=== PATIENT | female | born 1965 | race Caucasian/White ===

== ENCOUNTER 2020-08-04 15:19 | Emergency (ER) | payer OTHER ==
[~2020-08-04] VITALS: Ht 149.9 cm; Wt 50.8 kg
--- NOTE | 2020-08-04 15:25 | NUR ---
PT. PLACED IN ED BED 7
[2020-08-04 15:29] VITALS: BP_SYST 103
--- NOTE | 2020-08-04 15:30 | NUR ---
PT BIBA A&Ox3 CC WITNESSED SYNCOPAL EPISODE TODAY PT IS S/P ELECTIVE ABDOMINAL SURGERY PT WENT TO STAND FROM LYING DOWN AT HOME AND SISTER WITNESED HER HAVE A SYNCOPAL EPISODE ACCORDING TO HER SISTER WAS UNCONSCIOUS FOR ATLEAST 1 MINUTE. PT DENIES HEAD/NECK/BACK PAIN PT HAS NO MEDICAL HISTORY AND NO KNOWN ALLERGIES. PT. TOOK KEFLEX AND IBUPROFEN TODAY AFTER HER ELECTIVE SURGERY. PT WENT HAS ABDOMINAL BINDER ON CURRENTLY. PT VITALS STABLE WILL CONTINUE TO MONITOR
--- NOTE | 2020-08-04 15:52 | NUR ---
ER Dr. ODEN at bedside examining patient.
[2020-08-04 16:43] LABS: BASOPHILS # (AUTO) 0.1 K/uL (0.0-0.2); BASOPHILS % (AUTO) 0.5 % (0.0-2.0); HEMATOCRIT 34.3 % (36-48); HEMOGLOBIN 11.8 g/dL (12.0-16.0); LYMPHOCYTES # (AUTO) 0.9 K/uL (1.0-5.5); LYMPHOCYTES % (AUTO) 6.1 % (20.5-51.5); MEAN CORPUSCULAR HEMOGLOBIN 31 pg (27-31); MEAN CORPUSCULAR HGB CONC 35 % (32-36); MEAN CORPUSCULAR VOLUME 91 fL (79.0-98.0); MONOCYTES # (AUTO) 0.7 K/uL (0.0-1.0); MONOCYTES % (AUTO) 4.9 % (1.7-9.3); NEUTROPHILS # (AUTO) 12.5 K/uL (1.8-7.7); NEUTROPHILS % (AUTO) 88.5 % (40.0-70.0); PLATELET COUNT (AUTO) 296 K/uL (130-430); RED BLOOD CELL COUNT(AUTO) 3.78 MIL/uL (4.2-6.2); RED CELL DISTRIBUTION WIDTH 13.2 % (9.0-15.0); WHITE BLOOD COUNT (AUTO) 14.2 K/uL (4.8-10.8)
[2020-08-04 17:07] LABS: CALCIUM 8.2 mg/dL (8.4-11.0); CREATININE 0.83 mg/dL (0.55-1.30); POTASSIUM 3.8 mmol/L (3.5-5.1)
[2020-08-04 17:22] LABS: ALBUMIN 3.5 g/dL (3.4-4.8); TOTAL BILIRUBIN 0.3 mg/dL (0.0-1.0)
--- NOTE | 2020-08-04 17:30 | NUR ---
PT RESTING QUIETLY IN BED WILL CONTINU EOT MONITOR
[2020-08-04] MEDS: NACL 0.9% 1,000 ML IV ONE (17:57)
[2020-08-04 18:42] VITALS: BP_SYST 120
--- NOTE | 2020-08-04 18:42 | NUR ---
Patient given written and verbal discharge instructions and verbalizes understanding. ER MD ODEN discussed with patient the results and treatment provided. Patient in stable condition. ID arm band removed. IV catheter removed intact and dressing applied, no active bleeding. Opportunity for questions provided and answered.
== END 2020-08-04 18:42 | disposition home or self-care (01) ==
LOC: SED 15:19
DX: R61 Generalized hyperhidrosis (principal); R55 Syncope and collapse
CPT/HCPCS: 36415; 80053; 85025; 93005; 96360; 99284; J7030